=== PATIENT | female | born 1960 | race Caucasian/White ===

== ENCOUNTER 2016-12-30 16:38 | Emergency (ER) | payer OTHER ==
[~2016-12-30] VITALS: Ht 149.9 cm; Wt 97.7 kg
[~2016-12-30 16:38] MED LIST: ASPI81 PO; ATEN25 PO; ATOR40TA28 PO; [UNRECOGNIZED DRUG - REMARK] PO
[2016-12-30] MEDS ORDERED: DEXAMETHASONE SOD PHOS 4 MG/ML 5 ML VIAL IM ONE (17:45)
[2016-12-30] MEDS ORDERED: CefTRIAXone SODIUM 1 GM/VIAL IM ONE (17:45)
[2016-12-30] MEDS ORDERED: LIDOCAINE HCL/PF 1% 2 ML VIAL IM ONE (17:45)
[2016-12-30 18:43] VITALS: BP 154/76
== END 2016-12-30 18:44 | disposition home or self-care (01) ==
LOC: EMS 16:41
DX: J02.0 Streptococcal pharyngitis (principal); I10 Essential (primary) hypertension; E78.00 Pure hypercholesterolemia, unspecified
CPT/HCPCS: 96372; 99284; J0696; J1100; J3490

== ENCOUNTER 2017-08-29 12:04 | Emergency (ER) | payer OTHER ==
[~2017-08-29] VITALS: Ht 162.6 cm; Wt 98.2 kg
[2017-08-29 12:10] VITALS: BP 124/91
[2017-08-29] MEDS ORDERED: AMOX500C2 PO (12:12)
[2017-08-29] MEDS ORDERED: GuaiFENesin/D-METHORPHAN [SUGAR-FREE] 200-20MG/10 ML SYRUP UDCUP PO ONE (12:30)
[2017-08-29] MEDS ORDERED: ACETAMINOPHEN 325 MG TABLET PO ONE (12:30)
[2017-08-29] MEDS ORDERED: OSELTAMIVIR PHOSPHATE 75 MG CAPSULE PO ONE (12:45)
[2017-08-29 12:49] LABS: INFLUENZA TYPE A NEGATIVE FOR TYPE A (NEGATIVE); INFLUENZA TYPE B NEGATIVE FOR TYPE B (NEGATIVE)
== END 2017-08-29 13:14 | disposition home or self-care (01) ==
LOC: EMS 12:04
DX: J06.9 Acute upper respiratory infection, unspecified (principal); J02.9 Acute pharyngitis, unspecified; R51 Headache; E78.00 Pure hypercholesterolemia, unspecified; I10 Essential (primary) hypertension
CPT/HCPCS: 87804; 99284

== ENCOUNTER 2018-06-18 16:40 | Emergency (ER) | payer MEDICARE, OTHER ==
[~2018-06-18] VITALS: Ht 149.9 cm; Wt 84.1 kg
[~2018-06-18 16:40] MED LIST changes: +AMOX500C2 PO; -ASPI81 PO; -ATEN25 PO; -ATOR40TA28 PO; -[UNRECOGNIZED DRUG - REMARK] PO
[2018-06-18] MEDS ORDERED: HYDROCODONE/ACETAMINOPHEN 5-325 MG TABLET PO ONE (18:15)
[2018-06-18 19:22] VITALS: BP 128/80
== END 2018-06-18 20:40 | disposition home or self-care (01) ==
LOC: EMS 16:41
DX: S83.91XA Sprain of unspecified site of right knee, initial encounter (principal); M25.551 Pain in right hip; F41.9 Anxiety disorder, unspecified; E78.00 Pure hypercholesterolemia, unspecified; W01.0XXA Fall on same level from slipping, tripping and stumbling without subsequent striking against object, initial encounter; Y93.89 Activity, other specified; Y92.512 Supermarket, store or market as the place of occurrence of the external cause; Y99.8 Other external cause status
CPT/HCPCS: 73502

== ENCOUNTER 2019-03-02 10:58 | Emergency (ER) | payer MEDICARE, OTHER ==
[~2019-03-02] VITALS: Ht 149.9 cm; Wt 103.6 kg
[~2019-03-02 10:58] MED LIST changes: +AMLO5TAB9 PO; -AMOX500C2 PO; +ASPI-556 PO; +ATOR40TA28 PO; +IBUP-1506 PO; +LORA1TAB3 PO; +OMEP20 PO; +OXYB5 PO; +TRAZ-252 PO
[2019-03-02 11:28] VITALS: BP 133/76
== END 2019-03-02 11:45 | disposition home or self-care (01) ==
LOC: EMS 11:01
DX: B02.9 Zoster without complications (principal); E78.00 Pure hypercholesterolemia, unspecified; I10 Essential (primary) hypertension; F41.9 Anxiety disorder, unspecified; Z79.899 Other long term (current) drug therapy

== ENCOUNTER 2021-04-13 14:52 | Emergency (ER) | payer MEDICARE, OTHER ==
[~2021-04-13] VITALS: Ht 149.9 cm; Wt 113.6 kg
[~2021-04-13 14:52] MED LIST changes: +AMLO-257 PO; -AMLO5TAB9 PO; +LORA-1000 PO; -LORA1TAB3 PO; -OXYB5 PO; +OXYB5TAB20 PO
[2021-04-13 17:55] LABS: COVID AG,FIA SOURCE NASOPHARYNGEAL
[2021-04-13 18:24] LABS: INFLUENZA TYPE A NEGATIVE FOR TYPE A (NEGATIVE); INFLUENZA TYPE B NEGATIVE FOR TYPE B (NEGATIVE)
[2021-04-13 19:18] VITALS: BP 119/76
== END 2021-04-13 19:21 | disposition home or self-care (01) ==
LOC: EMS 14:56
DX: J18.9 Pneumonia, unspecified organism (principal); I10 Essential (primary) hypertension; E78.00 Pure hypercholesterolemia, unspecified; F41.9 Anxiety disorder, unspecified; Z79.82 Long term (current) use of aspirin; Z79.899 Other long term (current) drug therapy; Z20.822 Contact with and (suspected) exposure to COVID-19
CPT/HCPCS: 71045; 87804; 99285

== ENCOUNTER 2021-07-04 08:25 | Emergency (ER) | payer MEDICARE, OTHER ==
[~2021-07-04] VITALS: Ht 149.9 cm; Wt 108.0 kg
[2021-07-04 09:20] LABS: COVID AG,FIA SOURCE NASOPHARYNGEAL
[2021-07-04 10:22] LABS: INFLUENZA TYPE A NEGATIVE FOR TYPE A (NEGATIVE); INFLUENZA TYPE B NEGATIVE FOR TYPE B (NEGATIVE)
[2021-07-04 10:38] VITALS: BP 113/75
[2021-07-04] MEDS ORDERED: ACETAMINOPHEN 500 MG TABLET PO ONE (10:45)
[2021-07-04] MEDS ORDERED: IBUPROFEN 600 MG TABLET PO ONE (10:45)
[2021-07-04] MEDS ORDERED: AMOX TR/POT CLAV 875 MG/125 MG TABLET PO ONE (10:45)
== END 2021-07-04 10:51 | disposition home or self-care (01) ==
LOC: EMS 08:25
DX: H66.93 Otitis media, unspecified, bilateral (principal); I10 Essential (primary) hypertension; F31.9 Bipolar disorder, unspecified; Z20.822 Contact with and (suspected) exposure to COVID-19
CPT/HCPCS: 87804; 99284; Z7502; Z7610

== ENCOUNTER 2024-03-17 13:09 | Emergency (ER) | payer MEDICARE, OTHER ==
[~2024-03-17] VITALS: Ht 149.9 cm; Wt 107.3 kg
[2024-03-17 13:15] VITALS: BP 128/75; PULSE 89; RESP 19; TEMP 98
[2024-03-17] MEDS: LIDOCAINE 5% TRANSDERMAL PATCH TD ONE (16:10)
[2024-03-17] MEDS: TraMADol HCL 50 MG TABLET PO ONE (16:10)
[2024-03-17] MEDS: KETOROLAC TROMETHAMINE 30 MG/ML VIAL IM ONE (16:10)
[2024-03-17] MEDS ORDERED: TRAM50TA5 PO (17:23)
== END 2024-03-18 17:37 | disposition home or self-care (01) ==
LOC: EMS 13:09
DX: M46.1 Sacroiliitis, not elsewhere classified (principal); F31.9 Bipolar disorder, unspecified; I10 Essential (primary) hypertension
CPT/HCPCS: 99283; 73503; 96372; J1885

== ENCOUNTER 2024-07-18 11:40 | Emergency (ER) | payer MEDICARE, OTHER ==
[~2024-07-18] VITALS: Ht 149.9 cm; Wt 105.0 kg
[~2024-07-18 11:40] MED LIST changes: +TRAM50TA5 PO
[2024-07-18 11:45] VITALS: TEMP 97.7
[2024-07-18 12:24] VITALS: BP 137/72; PULSE 85; RESP 20; O2SAT 98
[2024-07-18] MEDS ORDERED: IBUP-1554 PO (12:54)
[2024-07-18] MEDS ORDERED: ACET-66 PO (12:54)
[2024-07-18] MEDS ORDERED: GABA-1181 PO (12:54)
[2024-07-18] MEDS ORDERED: METH-659 PO (12:54)
== END 2024-07-18 13:04 | disposition home or self-care (01) ==
LOC: EMS 11:40
DX: G89.29 Other chronic pain (principal); M54.50 Low back pain, unspecified; I10 Essential (primary) hypertension; Z79.82 Long term (current) use of aspirin; Z79.899 Other long term (current) drug therapy
CPT/HCPCS: 99283; Z7502

== ENCOUNTER 2025-02-18 19:18 | Inpatient (IN) | payer MEDICARE, OTHER ==
[~2025-02-18] VITALS: Ht 149.9 cm; Wt 108.0 kg
[~2025-02-18 19:18] MED LIST changes: +ACET-66 PO; +ASPI-1444 PO; -ASPI-556 PO; +HYDR-4062 PO; -IBUP-1506 PO; +LEVO750T68 PO; -LORA-1000 PO; +METH-659 PO; +NITR-104 PO; +OMEP-148 PO; -OMEP20 PO; +POLY119P3 PO; -TRAM50TA5 PO
[2025-02-18] MEDS ORDERED: 0.9% SODIUM CHLORIDE 10 ML SYRINGE IVP PRN (21:00)
[2025-02-18] MEDS: SODIUM CHLORIDE 0.9% 1,000 ML IV ONE (21:06)
[2025-02-18 21:23] LABS: PLATELET COUNT (AUTO) 316 K/uL (150-450); RED BLOOD CELL COUNT(AUTO) 4.55 MIL/uL (4.00-5.20); RED CELL DISTRIBUTION WIDTH 15.3 % (11.5-14.5); WHITE BLOOD COUNT (AUTO) 13.4 K/uL (4.5-11.0)
[2025-02-18 21:34] LABS: CALCIUM, TOTAL 9.0 mg/dL (8.8-10.5); CREATININE 0.93 mg/dL (0.60-1.30); GLOMERULAR FILTR. RATE CALC 60.0 mL/min (>60); GLUCOSE,RANDOM 102.0 mg/dL (70-110); SODIUM SERUM 136.0 mmol/L (136-145); UREA NITROGEN, BLOOD 11.0 mg/dL (7-18)
[2025-02-18 21:37] LABS: ASPARTATE AMINOTRANSFERASE 20 U/L (15-37); TOTAL PROTEIN, SERUM 8.4 g/dL (6.4-8.2)
[2025-02-18 21:45] LABS: LACTIC ACID 0.9 mmol/L (0.4-2.0)
[2025-02-18] MEDS: SODIUM CHLORIDE 0.9% 1,950 ML IV ONE (22:14)
[2025-02-18] MEDS: CefTRIAXone 1 GM/DEXTROSE 50 ML IV ONE (22:17)
[2025-02-18] MEDS ORDERED: ONDANSETRON HCL 4 MG/2 ML VIAL IVP PRN (23:45)
[2025-02-18] MEDS ORDERED: ACETAMINOPHEN 325 MG TABLET PO PRN (23:45)
[2025-02-18] MEDS: HEPARIN SODIUM,PORCINE 5,000 UNITS/ML VIAL SQ SCH (23:51)
[2025-02-19 00:24] LABS: APPEARANCE,URINE CLEAR (CLEAR); GLUCOSE, URINE (UA) NEGATIVE (NEGATIVE); LEUKOCYTE ESTERASE ,URINE MODERATE (NEGATIVE); NITRATE,URINE NEGATIVE (NEGATIVE); OCCULT BLOOD,URINE TRACE (NEGATIVE); SPECIFIC GRAVITIY, URINE 1.012 (1.003-1.030)
[2025-02-19 01:09] VITALS: BP 117/63; PULSE 92; RESP 18; TEMP 98.6; O2SAT 96
[2025-02-19 01:12] LABS: SQUAMOUS EPITHELIAL CELL,UR Few /LPF (None Seen)
[2025-02-19 04:00] VITALS: BP 148/89; PULSE 106; RESP 19; TEMP 99.1; O2SAT 96
[2025-02-19] MEDS: OxyCODONE HCL/ACETAMINOPHEN 5-325 MG TABLET PO PRN (04:50)
[2025-02-19 06:37] LABS: PLATELET COUNT (AUTO) 279 K/uL (150-450); RED BLOOD CELL COUNT(AUTO) 4.53 MIL/uL (4.00-5.20); RED CELL DISTRIBUTION WIDTH 15.0 % (11.5-14.5); WHITE BLOOD COUNT (AUTO) 12.0 K/uL (4.5-11.0)
[2025-02-19 06:57] LABS: CALCIUM, TOTAL 8.6 mg/dL (8.8-10.5); CREATININE 0.84 mg/dL (0.60-1.30); GLOMERULAR FILTR. RATE CALC > 60 mL/min (>60); GLUCOSE,RANDOM 100 mg/dL (70-110); SODIUM SERUM 138 mmol/L (136-145); UREA NITROGEN, BLOOD 8 mg/dL (7-18)
[2025-02-19 08:00] VITALS: BP 111/65; PULSE 82; RESP 19; TEMP 97.7; O2SAT 98
[2025-02-19] MEDS: FAMOTIDINE 20 MG TABLET PO SCH (08:04)
[2025-02-19] MEDS: DOCUSATE SODIUM 100 MG CAPSULE PO SCH (08:04)
[2025-02-19 12:00] VITALS: BP 116/65; RESP 17; TEMP 98.6; O2SAT 96
[2025-02-19 16:00] VITALS: BP 132/80; PULSE 101; RESP 16; TEMP 98.8; O2SAT 99
[2025-02-19 20:17] VITALS: BP 128/60; PULSE 98; RESP 17; TEMP 99.1; O2SAT 95
[2025-02-19] MEDS ORDERED: SODIUM CHLORIDE 0.9% 1,000 ML ONE (21:00)
[2025-02-19] MEDS: ZOLPIDEM TARTRATE 5 MG TABLET PO PRN (21:16)
[2025-02-19] MEDS: CefTRIAXone 1 GM/DEXTROSE 50 ML IV SCH (21:16)
[2025-02-20 05:41] VITALS: BP 127/69; PULSE 73; RESP 16; TEMP 98.6; O2SAT 95
[2025-02-20 07:51] VITALS: BP 120/57; PULSE 92; RESP 18; TEMP 99; O2SAT 95
[2025-02-20 20:32] VITALS: BP 120/57; PULSE 95; RESP 18; TEMP 98.6; O2SAT 95
[2025-02-20 23:41] LABS: GLUCOMETER DEV NAME(LOC) 6S.2; GLUCOSE,POINT OF CARE 123 MG/DL (70-110)
[2025-02-21 05:35] VITALS: BP 123/66; PULSE 85; RESP 19; TEMP 98.6; O2SAT 98
[2025-02-21 07:58] VITALS: BP 122/62; PULSE 78; RESP 18; TEMP 98.2; O2SAT 96
[2025-02-21 08:00] VITALS: BP 118/84; PULSE 98; RESP 18; TEMP 97.5; O2SAT 100
[2025-02-21] MEDS: ETHYL ALCOHOL 62% ANTISEPTIC NASAL SANITIZER 0.6 ML AMPUL NASAL SCH (08:59)
[2025-02-21] MEDS ORDERED: CEPH-558 PO (09:50)
== END 2025-02-21 16:20 | disposition home or self-care (01) | DRG 872 ==
LOC: EMS 19:18 → EDH 23:34 → 5N 02-19 01:12 → 6N 02-19 09:35
PROVIDERS: ADMIT Internal Medicine; ATTEND Internal Medicine
DX: A41.9 Sepsis, unspecified organism (principal); Z68.42 Body mass index [BMI] 45.0-49.9, adult; N20.2 Calculus of kidney with calculus of ureter; N39.0 Urinary tract infection, site not specified; E66.01 Morbid (severe) obesity due to excess calories; I10 Essential (primary) hypertension; N13.9 Obstructive and reflux uropathy, unspecified; F31.9 Bipolar disorder, unspecified; Z87.440 Personal history of urinary (tract) infections; Z82.49 Family history of ischemic heart disease and other diseases of the circulatory system; Z93.6 Other artificial openings of urinary tract status; Z87.442 Personal history of urinary calculi; Z79.899 Other long term (current) drug therapy; Z79.82 Long term (current) use of aspirin
CPT/HCPCS: 71045; 74176; 80048; 80076; 81001; 82962; 83605; 84145; 85025; 87040; 87077; 87081; 87186; 87205; 93005; 96361; 96365; 99291; G0378; J0696; J1644; J7030; 36415-L1; 36415-TC

== ENCOUNTER 2025-02-22 12:44 | Emergency (ER) | payer MEDICARE, OTHER ==
[~2025-02-22] VITALS: Ht 149.9 cm; Wt 100.5 kg
[~2025-02-22 12:44] MED LIST changes: +CEPH-558 PO; -LEVO750T68 PO; -NITR-104 PO
[2025-02-22 12:46] VITALS: TEMP 97.7
[2025-02-22 13:45] VITALS: BP 149/63; PULSE 82; RESP 13; O2SAT 98
== END 2025-02-22 13:53 | disposition home or self-care (01) ==
LOC: EMS 12:45
DX: N13.2 Hydronephrosis with renal and ureteral calculous obstruction (principal); I10 Essential (primary) hypertension; Z22.322 Carrier or suspected carrier of Methicillin resistant Staphylococcus aureus; Z79.82 Long term (current) use of aspirin; Z79.899 Other long term (current) drug therapy
CPT/HCPCS: 99282; Z7502